=== PATIENT | female | born 1970 | race African-American/Black ===

== ENCOUNTER 2017-06-11 01:08 | Emergency (ER) | payer SELFPAY ==
[~2017-06-11] VITALS: Ht 167.6 cm; Wt 77.1 kg
--- NOTE | 2017-06-11 01:22 | Emergency Room Report ---
History of Present Illness General Chief Complaint: General Complaint Source: Patient, EMS Present Illness HPI 47Y[place] [address] Called EMS from payphone C/o "whole body pain." Also intermittently yelling at unseen persons while in ambulance and in ED Was placed in chair in [employer] and immediately went to sleep Multiple staff members in ED report that patient frequently seen by [address] begging for money No previous visits here Patient endorses psych history but "Doesnt take any meds." Denies SI, HI, AVH Allergies: Coded Allergies: No Known Allergies (Unverified , 06/11/17) Patient History Past Medical History: psych hx Past Surgical History: none Pertinent Family History: none Social History: Denies: alcohol use, drug use, smoking Now: No Immunizations: UTD Reviewed Nursing Documentation: PMH: Agreed, PSxH: Agreed Nursing Documentation-PMH Past Medical History: No Stated History Review of Systems All Other Systems: negative except mentioned in HPI Physical Exam Vital Signs Date Time Temp Pulse Resp B/P Pulse Ox O2 Delivery O2 Flow Rate FiO2 06/11/17 01:09 99.0 82 14 124/87 98 Room Air Sp02 EP Interpretation: reviewed, normal General Appearance: normal inspection, well appearing, no apparent distress, alert, GCS 15, non-toxic Head: normocephalic, atraumatic Eyes: bilateral eye EOMI, bilateral eye PERRL ENT: normal ENT inspection, hearing grossly normal, normal voice Neck: normal inspection, full range of motion, supple, no bony tend Respiratory: normal inspection, lungs clear, normal breath sounds, no respiratory distress, no retraction, no wheezing Cardiovascular #1: regular rate, rhythm, no edema Gastrointestinal: normal inspection, normal bowel sounds, non tender, soft, no guarding, no hernia Genitourinary: no CVA tenderness Musculoskeletal: normal inspection, back normal, normal range of motion, Damien' s Sign negative Neurologic: normal inspection, alert, oriented x3, responsive, eligibility services representative III-XII nml as tested, motor strength/tone normal, speech normal Psychiatric: no suicidal/homicidal ideation, other - Paranoid, visual hallucinations Skin: normal inspection, normal color, no rash Lymphatic: normal inspection Medical Decision Making Diagnostic Impression: Primary Impression: Behavioral change Additional Impression: Polysubstance abuse ER Course Behavior change Likely schizophrenic Denies SI, HI Not a danger to herself or others likely not on medication currently Given risperdal PO in ED Utox + for cocaine and PCP I do not believe she warrants acute psych Cx or placement at this time DC home Last Vital Signs Date Time Temp Pulse Resp B/P Pulse Ox O2 Delivery O2 Flow Rate FiO2 06/11/17 01:09 99.0 82 14 124/87 98 Room Air Status: improved Disposition: HOME, SELF-CARE PRECIOUS SOTELO M.D. Jun 11, 2017 01:22
[2017-06-11 01:35] VITALS: BP 124/87
[2017-06-11 05:36] VITALS: BP 112/78
== END 2017-06-11 05:36 | disposition home or self-care (01) ==
LOC: EDBD 01:08 → EMR 01:19
DX: F91.9 Conduct disorder, unspecified (principal); F19.10 Other psychoactive substance abuse, uncomplicated
CPT/HCPCS: 80300; 99282

== ENCOUNTER 2017-06-22 03:58 | Emergency (ER) | payer SELFPAY ==
[~2017-06-22] VITALS: Ht 167.6 cm; Wt 96.6 kg
[2017-06-22 04:00] VITALS: BP 96/64
[2017-06-22] MEDS ORDERED: ATIVAN1 MG ORAL (04:01)
[2017-06-22] MEDS ORDERED: POTASSIUM99 M3 PO (04:01)
[2017-06-22] MEDS ORDERED: IRON325 M2 PO (04:01)
[2017-06-22] MEDS ORDERED: SYNTHROID75 MCG ORAL (04:01)
[2017-06-22 05:22] LABS: APPEARANCE,URINE CLEAR; KETONES,URINE NEGATIVE (NEGATIVE); LEUKOCYTE ESTERASE ,URINE 1+ (NEGATIVE); NITRITE,URINE NEGATIVE (NEGATIVE); PH,URINE 5 (4.5-8.0); PROTEIN,URINE 2+ (NEGATIVE); UROBILINOGEN,URINE 4 MG/DL (0.0-1.0)
[2017-06-22 05:23] LABS: BASOPHILS % (AUTO) 0.6 % (0.0-2.0); EOSINOPHILS % (AUTO) 2.2 % (0.0-3.0); LYMPHOCYTES % (AUTO) 24.9 % (20.0-45.0); MEAN CORPUSCULAR HEMOGLOBIN 28.8 PG (27.0-31.0); MEAN CORPUSCULAR VOLUME 90 FL (80-99); MEAN PLATELET VOLUME 7.6 FL (6.5-10.1); MONOCYTES % (AUTO) 6.6 % (1.0-10.0); NEUTROPHILS % (AUTO) 65.7 % (45.0-75.0); PLATELET COUNT 175 K/UL (150-450); RED BLOOD COUNT 3.96 M/UL (4.20-5.40); RED CELL DISTRIBUTION WIDTH 16.4 % (11.6-14.8); WHITE BLOOD COUNT 5.3 K/UL (4.8-10.8)
[2017-06-22 05:29] LABS: ACETAMINOPHEN < 10 ug/mL (10-30); ALANINE AMINOTRANSFERASE 8 U/L (3-33); ALBUMIN/GLOBULIN RATIO 0.9 (1.0-2.7); ALCOHOL < 10 mg/dL; ANION GAP 9 (5-15); ASPARTATE AMINO TRANSFERASE 16 U/L (5-40); CALCIUM 9.2 mg/dL (8.6-10.2); CARBON DIOXIDE 27 mEQ/L (20-30); CHLORIDE 105 mEQ/L (98-107); CREATININE 0.8 mg/dL (0.5-0.9); GLOMERULAR FILTRATION RATE > 60 mL/min (>60); HEMOLYSIS 0; POTASSIUM 3.1 mEQ/L (3.4-4.9); SODIUM 141 mEQ/L (135-145); TOTAL PROTEIN 7.6 g/dL (6.6-8.7)
[2017-06-22 05:36] LABS: BACTERIA,URINE FEW /HPF; SQUAMOUS EPITHELIAL CELL,UR FEW /LPF (NONE/OCC); WBC,URINE 0-2 /HPF (0 - 2)
[2017-06-22 05:37] LABS: MUCUS,URINE FEW /LPF (NONE/OCC)
[2017-06-22 06:00] VITALS: BP 99/61
--- NOTE | 2017-06-22 07:08 | Emergency Room Report ---
History of Present Illness General Chief Complaint: Medication Refill Source: Patient (Andres Portillo M.D.) Present Illness HPI The patient is brought in from the streets allegedly for a medication refill. She is accompanied by police at. EMS transported the patient. The medicine she 's asking for his "narcotics". She denies any pain at this time. She states her doctor recommended narcotics as opposed to giving her antipsychotic medications. She denies homicidal ideation. She states she is thinking about killing herself but has no plan. She is he responding to internal stimuli during the history taking. Denies any drug use but states that "that lady who over there (there is no person present) uses crack." She is complaining about toxemia referring swelling in her legs. She denies any pain in her calves. (Andres Portillo M.D.) Allergies: Coded Allergies: No Known Allergies (Unverified , 06/11/17) Patient History Past Medical History: see triage record Social History: Denies: alcohol use, drug use, smoking Social History Narrative on streets Reviewed Nursing Documentation: PMH: Agreed, PSxH: Agreed (Andres Portillo M.D.) Nursing Documentation-PMH Past Medical History: No History, Except For History Of Psychiatric Problem: Yes - depression, bipolar (Andres Portillo M.D.) Review of Systems All Other Systems: negative except mentioned in HPI (Andres Portillo M.D.) Physical Exam Vital Signs Date Time Temp Pulse Resp B/P Pulse Ox O2 Delivery O2 Flow Rate FiO2 06/22/17 03:55 98.1 80 18 96/64 98 Room Air Sp02 EP Interpretation: reviewed, normal General Appearance: other - dishevelled Head: normocephalic Eyes: bilateral eye PERRL, bilateral eye normal inspection ENT: moist mucus membranes Neck: supple Respiratory: lungs clear, normal breath sounds Cardiovascular #1: regular rate, rhythm Cardiovascular #2: 2+ radial (R) Gastrointestinal: normal inspection, normal bowel sounds, non tender, no mass, non-distended Musculoskeletal: back normal, gait/station normal, normal range of motion Neurologic: alert, oriented x3 Psychiatric: other - delusions and SI Suicide Risk Assessment: Suicidal Ideation: Yes Had intent to initiate attempt: No Pt's plan for suicide attempt: No Has means to complete attempt: Yes Skin: other - dishevelled (Andres Portillo M.D.) Medical Decision Making Diagnostic Impression: Primary Impression: Psychosis Qualified Codes: F29 - Unspecified psychosis not due to a substance or known physiological condition Additional Impressions: Cocaine abuse History of schizophrenia ER Course The patient presents requesting narcotics. She is obviously responding to internal stimuli. Differential includes exacerbation of schizophrenia, electrolyte abnormality, medication medication noncompliance. The patient states that she thinks about killing herself but has no plan. Evaluation with labs including tox screen. As the patient states that she's taking Abilify in the past she'll be given this medication. Based on the fact that she's got psychotic features the patient will undergo psychiatric evaluation here. Labs remarkable for + cocaine. Abilify given. Medically cleared. Signed out to Dr. Wellington for evaluation by Dr. Sarabia. Labs Test 06/22/17 04:28 White Blood Count 5.3 K/UL (4.8-10.8) Red Blood Count 3.96 M/UL (4.20-5.40) Hemoglobin 11.4 G/DL (12.0-16.0) Hematocrit 35.7 % (37.0-47.0) Mean Corpuscular Volume 90 FL (80-99) Mean Corpuscular Hemoglobin 28.8 PG (27.0-31.0) Mean Corpuscular Hemoglobin Concent 32.0 G/DL (32.0-36.0) Red Cell Distribution Width 16.4 % (11.6-14.8) Platelet Count 175 K/UL (150-450) Mean Platelet Volume 7.6 FL (6.5-10.1) Neutrophils (%) (Auto) 65.7 % (45.0-75.0) Lymphocytes (%) (Auto) 24.9 % (20.0-45.0) Monocytes (%) (Auto) 6.6 % (1.0-10.0) Eosinophils (%) (Auto) 2.2 % (0.0-3.0) Basophils (%) (Auto) 0.6 % (0.0-2.0) Urine Color Yellow Urine Appearance Clear Urine pH 5 (4.5-8.0) Urine Specific [place] 1.020 (1.005-1.035) Urine Protein 2+ (NEGATIVE) Urine Glucose (UA) Negative (NEGATIVE) Urine Ketones Negative (NEGATIVE) Urine Occult Blood 4+ (NEGATIVE) Urine Nitrite Negative (NEGATIVE) Urine Bilirubin Negative (NEGATIVE) Urine Urobilinogen 4 MG/DL (0.0-1.0) Urine Leukocyte Esterase 1+ (NEGATIVE) Urine RBC 2-4 /HPF (0 - 2) Urine WBC 0-2 /HPF (0 - 2) Urine Squamous Epithelial Cells Few /LPF (NONE/OCC) Urine Bacteria Few /HPF (NONE) Urine Mucus Few /LPF (NONE/OCC) Sodium Level 141 mEQ/L (135-145) Potassium Level 3.1 mEQ/L (3.4-4.9) Chloride Level 105 mEQ/L (98-107) Carbon Dioxide Level 27 mEQ/L (20-30) Anion Gap 9 (5-15) Blood Urea Nitrogen 10 mg/dL (7-23) Creatinine 0.8 mg/dL (0.5-0.9) Estimat Glomerular Filtration Rate > 60 mL/min (>60) Glucose Level 96 mg/dL (74-106) Calcium Level 9.2 mg/dL (8.6-10.2) Total Bilirubin 0.2 mg/dL (0.0-1.2) Aspartate Amino Transf (AST/SGOT) 16 U/L (5-40) Alanine Aminotransferase (ALT/SGPT) 8 U/L (3-33) Alkaline Phosphatase 65 U/L (35-104) Total Creatine Kinase 171 U/L (26-140) Total Protein 7.6 g/dL (6.6-8.7) Albumin 3.6 g/dL (3.5-5.2) Globulin 4.0 g/dL Albumin/Globulin Ratio 0.9 (1.0-2.7) Salicylates Level < 1 mg/dL (10-30) Urine Opiates Screen Negative (NEGATIVE) Acetaminophen Level < 10 ug/mL (10-30) Urine Barbiturates Screen Negative (NEGATIVE) Phencyclidine (PCP) Screen Negative (NEGATIVE) Urine Amphetamines Screen Negative (NEGATIVE) Urine Benzodiazepines Screen Negative (NEGATIVE) Urine Cocaine Screen Positive (NEGATIVE) Urine Marijuana (THC) Screen Negative (NEGATIVE) Serum Alcohol < 10 mg/dL (Andres Portillo M.D.) ER Course The patient was seen by Dr. Sarabia who recommended Haldol Decanoate injection. The patient was to followup for outpatient mental health. The patient was given injection.The patient is advised to followup with outpatient mental health. She is advised to discontinue use of drugs. (Cesar Wellington) Last Vital Signs Date Time Temp Pulse Resp B/P Pulse Ox O2 Delivery O2 Flow Rate FiO2 06/22/17 11:51 97.9 72 17 109/64 100 Room Air Status: improved (Andres Portillo M.D.) Status: improved (Cesar Wellington) Disposition: HOME, SELF-CARE Condition: Stable Referrals: NOT CHOSEN JAMES/,REFERRING (PCP) Andres Portillo M.D. Jun 22, 2017 07:08 Cesar Wellington Jun 22, 2017 11:32
[2017-06-22] MEDS ORDERED: RISPERDAL2 MG ORAL (10:54)
--- NOTE | 2017-06-22 11:00 | Consultation ---
History of Present Illness General Chief Complaint: Medication Refill Present Illness HPI 47 yo with hx of schizophrenia, and drug abuse. The pt was disorganized and was responding to internal stimuli. the pt is delusional and gets agitated easily. the pt was unable to provide history. the pt urine tox is pos for cocaine. the pt was not suicidal or homicidal. the pt was observed eating and didn't attempt to take her cloths off in public. the pt stated that she lives in a [facility]. Allergies: Coded Allergies: No Known Allergies (Unverified , 06/11/17) Medication History Scheduled Levothyroxine Sodium* (Synthroid*), 75 MCG ORAL DAILY, (Reported) Lorazepam* (Ativan*), 1 MG ORAL BEDTIME, (Reported) Miscellaneous Medications Ferrous Sulfate (Iron), 325 MG PO, (Reported) Potassium Gluconate (Potassium), 99 MG PO, (Reported) Patient History History Provided By: Patient, Medical Record, PMD Healthcare decision maker Resuscitation status Advanced Directive on File Review of Systems Psychiatric: Reports: anxiety, prior hx Physical Exam General Appearance: no apparent distress, alert, overweight Neurologic: alert, oriented x 3, responsive, depressed affect Last 24 Hour Vital Signs Date Time Temp Pulse Resp B/P Pulse Ox O2 Delivery O2 Flow Rate FiO2 06/22/17 06:00 97.9 75 15 99/61 100 Room Air 06/22/17 04:00 98.1 80 18 96/64 98 Room Air 06/22/17 03:55 98.1 80 18 96/64 98 Room Air Laboratory Tests Test 06/22/17 04:28 White Blood Count 5.3 K/UL (4.8-10.8) Red Blood Count 3.96 M/UL (4.20-5.40) L Hemoglobin 11.4 G/DL (12.0-16.0) L Hematocrit 35.7 % (37.0-47.0) L Mean Corpuscular Volume 90 FL (80-99) Mean Corpuscular Hemoglobin 28.8 PG (27.0-31.0) Mean Corpuscular Hemoglobin Concent 32.0 G/DL (32.0-36.0) Red Cell Distribution Width 16.4 % (11.6-14.8) H Platelet Count 175 K/UL (150-450) Mean Platelet Volume 7.6 FL (6.5-10.1) Neutrophils (%) (Auto) 65.7 % (45.0-75.0) Lymphocytes (%) (Auto) 24.9 % (20.0-45.0) Monocytes (%) (Auto) 6.6 % (1.0-10.0) Eosinophils (%) (Auto) 2.2 % (0.0-3.0) Basophils (%) (Auto) 0.6 % (0.0-2.0) Urine Color Yellow Urine Appearance Clear Urine pH 5 (4.5-8.0) Urine Specific [place] 1.020 (1.005-1.035) Urine Protein 2+ (NEGATIVE) H Urine Glucose (UA) Negative (NEGATIVE) Urine Ketones Negative (NEGATIVE) Urine Occult Blood 4+ (NEGATIVE) H Urine Nitrite Negative (NEGATIVE) Urine Bilirubin Negative (NEGATIVE) Urine Urobilinogen 4 MG/DL (0.0-1.0) H Urine Leukocyte Esterase 1+ (NEGATIVE) H Urine RBC 2-4 /HPF (0 - 2) H Urine WBC 0-2 /HPF (0 - 2) Urine Squamous Epithelial Cells Few /LPF (NONE/OCC) Urine Bacteria Few /HPF (NONE) Urine Mucus Few /LPF (NONE/OCC) H Sodium Level 141 mEQ/L (135-145) Potassium Level 3.1 mEQ/L (3.4-4.9) L Chloride Level 105 mEQ/L (98-107) Carbon Dioxide Level 27 mEQ/L (20-30) Anion Gap 9 (5-15) Blood Urea Nitrogen 10 mg/dL (7-23) Creatinine 0.8 mg/dL (0.5-0.9) Estimat Glomerular Filtration Rate > 60 mL/min (>60) Glucose Level 96 mg/dL (74-106) Calcium Level 9.2 mg/dL (8.6-10.2) Total Bilirubin 0.2 mg/dL (0.0-1.2) Aspartate Amino Transf (AST/SGOT) 16 U/L (5-40) Alanine Aminotransferase (ALT/SGPT) 8 U/L (3-33) Alkaline Phosphatase 65 U/L (35-104) Total Creatine Kinase 171 U/L (26-140) H Total Protein 7.6 g/dL (6.6-8.7) Albumin 3.6 g/dL (3.5-5.2) Globulin 4.0 g/dL Albumin/Globulin Ratio 0.9 (1.0-2.7) L Salicylates Level < 1 mg/dL (10-30) L Urine Opiates Screen Negative (NEGATIVE) Acetaminophen Level < 10 ug/mL (10-30) L Urine Barbiturates Screen Negative (NEGATIVE) Phencyclidine (PCP) Screen Negative (NEGATIVE) Urine Amphetamines Screen Negative (NEGATIVE) Urine Benzodiazepines Screen Negative (NEGATIVE) Urine Cocaine Screen Positive (NEGATIVE) H Urine Marijuana (THC) Screen Negative (NEGATIVE) Serum Alcohol < 10 mg/dL Height (Feet): 5 Height (Inches): 6.00 Weight (Pounds): 213 Assessment/Plan Status: stable Assessment/Plan schizophrenia -haldol dec 50 im -the pt does not meet the criteria for hold nor iploc -d/w Gonzalo Keenan M.D. Jun 22, 2017 11:00
[2017-06-22 11:10] VITALS: BP 109/64
[2017-06-22] MEDS ORDERED: Haloperidol Decanoate 50mg Inj IM ONE (11:15)
[2017-06-22 11:51] VITALS: BP 109/64
== END 2017-06-22 11:52 | disposition home or self-care (01) ==
LOC: EDBD 03:58 → EMR 04:13
DX: F29 Unspecified psychosis not due to a substance or known physiological condition (principal); F14.10 Cocaine abuse, uncomplicated; F20.9 Schizophrenia, unspecified; F31.9 Bipolar disorder, unspecified
CPT/HCPCS: 36415; 80053; 80300; 81003; 82550; 85025; 87086; 96372; 99283; G0480; J1631; 80329